=== PATIENT | male | born 1995 | race Caucasian/White ===

== ENCOUNTER 2018-06-08 18:02 | Emergency (ER) | payer BC ==
[~2018-06-08] VITALS: Ht 190.5 cm; Wt 90.7 kg
--- OUTSIDE RECORDS SUMMARY | 2018-06-08 18:04 | XMS REPORT | Encounter Summary ---
Author Organization Unknown Address [address] [place] [address] Phone [phone] Reason for Visit Medical Complaint Instructions 1. Viral gastroenteritis rapid flu (A+B) gastroenteritis: care instructions nausea and vomiting: care instructions diarrhea: care instructions oral rehydration: care instructions 2. Influenza vaccine needed Discussion Note: None recorded. Plan of Care Patient Instructions Your Care Instructions Gastroenteritis is an illness that may cause nausea, vomiting, and diarrhea. It is sometimes called "stomach flu." It can be caused by bacteria or a virus. You will probably begin to feel better in 1 to 2 days. In the meantime, get plenty of rest and make sure you do not become dehydrated. Dehydration occurs when your body loses too much fluid. Follow-up care is a roman part of your treatment and safety. Be sure to make and go to all appointments, and call your doctor if you are having problems. It's also a good idea to know your test results and keep a list of the medicines you take. How can you care for yourself at home? If your doctor prescribed antibiotics, take them as directed. Do not stop taking them just because you feel better. You need to take the full course of antibiotics. Drink plenty of fluids to prevent dehydration, enough so that your urine is light yellow or clear like water. Choose water and other caffeine-free clear liquids until you feel better. If you have kidney, heart, or liver disease and have to limit fluids, talk with your doctor before you increase your fluid intake. Drink fluids slowly, in frequent, small amounts, because drinking too much too fast can cause vomiting. Begin eating mild foods, such as dry toast, yogurt, applesauce, bananas, and rice. Avoid spicy, hot, or high-fat foods, and do not drink alcohol or caffeine for a day or two. Do not drink milk or eat ice cream until you are feeling better. How to prevent gastroenteritis Keep hot foods hot and cold foods cold. Do not eat meats, dressings, salads, or other foods that have been kept at room temperature for more than 2 hours. Use a thermometer to check your refrigerator. It should be between 34F and 40F. Defrost meats in the refrigerator or microwave, not on the kitchen counter. Keep your hands and your kitchen clean. Wash your hands, cutting boards, and countertops with hot soapy water frequently. Cook meat until it is well done. Do not eat raw eggs or uncooked sauces made with raw eggs. Do not take chances. If food looks or tastes spoiled, throw it out. When should you call for help? Call 911 anytime you think you may need emergency care. For example, call if: You vomit blood or what looks like coffee grounds. You passed out (lost consciousness). You pass maroon or very bloody stools. Call your doctor now or seek immediate medical care if: You have severe belly pain. You have signs of needing more fluids. You have sunken eyes, a dry mouth, and pass only a little dark urine. You feel like you are going to faint. You have increased belly pain that does not go away in 1 to 2 days. You have new or increased nausea, or you are vomiting. You have a new or higher fever. Your stools are black and tarlike or have streaks of blood. Watch closely for changes in your health, and be sure to contact your doctor if: You are dizzy or lightheaded. You urinate less than usual, or your urine is dark yellow or brown. You do not feel better with each day that goes by. Reminders Provider Appointments None recorded. Lab Rapid Flu (A+B) 04/17/2018 [facility] Referral None recorded. Procedures None recorded. Surgeries None recorded. Imaging None recorded. Medications Name Start Date sertraline 100 mg tablet Medications Administered None recorded. Vitals Height Weight BMI Blood Pressure 6 ft 3 in 195 lbs 24.4 kg/m2 110/66 mm[Hg] Lab Results Date Name Specimen Result Interpretation Description Value Range Status Address Rapid Flu (A+B) Influenza a negative [facility]: [address] [place] [address] Influenza B negative [facility]: [address] [place] [address] Allergies Code Code System Name Reaction Severity Status Onset NKDA Problems No Known Problems Procedures None recorded. Vaccine List None recorded. Social History Smoking Status Never Smoker Past Encounters 04/17/2018 Viral Gastroenteritis; Influenza Vaccine Needed Shireen Bermeo, TOBACCO CONDITIONER-C: [address] [facility], [place] [address], Ph. History of Present Illness Lisssi-Plozvjew-Pupslynn / Abdominal Pain Reported By: Patient HPI: Quality: watery, soft. Severity: moderate. Duration: present for < 1 week. Onset/Timing: no nocturnal symptoms. Context: no one else with similar symptoms, no recent camping, no recent picnic, no possible food sources, no recent travel. Associated Symptoms: no abdominal pain, no excess gas, no fever/chills, no rash, no joint pain, no weight loss, no nausea, no vomiting, no heartburn, no blood in stool, no mucus in stool, no black or tarry stools, no weakness, no nutrient deficiency, no feeling of fullness/mass in throat, no muscle aches, no bitter taste in the mouth, no difficulty swallowing (d ysphagia), headache Review of Systems:ROS as noted in the HPI Review of Systems Basic Reported By: Patient Physical Exam Adult Basic, Adult Male Complete Reported By: Patient Constitutional: General Appearance: healthy-appearing, well-nourished, well-developed. Level of Distress: NAD. Ambulation: ambulating normally Psychiatric: Mental Status: active and alert. Orientation: to time, to place, to person Gai-Bama-Hvyvw-Throat: Ears: no lesions on external ear, no outer ear tenderness, EACs clear, TMs clear. Hearing: no hearing loss. Nose: no lesions on external nose, nares patent, no septal deviation, nasal passages clear, no sinus tenderness, no nasal discharge. Lips, Teeth, and Gums: no mouth or lip ulcers, no bleeding gums, normal dentition. Oropharynx: moist mucous membranes, no erythema, no exudates, tonsils not enlarged Lungs: Respiratory effort: no dyspnea, no tachypnea, no use of accessory muscles, no intercostal retractions. Auscultation: breath sounds normal, good air movement Cardiovascular: Heart Auscultation: RRR, no murmurs Abdomen: Bowel Sounds: normal. Inspection and Palpation: soft, no tenderness, no guarding, no rebound tenderness, no masses, no CVA tenderness
--- OUTSIDE RECORDS SUMMARY | 2018-06-08 18:04 | XMS REPORT | Encounter Summary ---
Author Organization Unknown Address [address] [place] [address] Phone [phone] Reason for Visit Medical Complaint Instructions 1. Acute bronchitis bronchitis: care instructions peak flow prednisone 20 mg tablet Bromfed DM 2 mg-30 mg-10 mg/5 mL oral syrup oral corticosteroids: care instructions 2. Posterior rhinorrhea fluticasone propionate 50 mcg/actuation nasal spray,suspension Discussion Note Pt in NAD, understands all information provided Plan of Care Patient Instructions Pt will take meds as prescribed with 8oz glass of water and food. Please seek care (PCP, Urgent Care, ER) or return to [facility] if symptoms get worse or do not resolve in 1 week. Reminders Provider Appointments None recorded. Lab None recorded. Referral None recorded. Procedures None recorded. Surgeries None recorded. Imaging None recorded. Medications Name Start Date Bromfed DM 2 mg-30 mg-10 mg/5 mL oral syrup Take 10 mL every 4 hours by oral route as needed. fluticasone propionate 50 mcg/actuation nasal spray,suspension [place] 1 spray twice a day by intranasal route for 14 days. prednisone 20 mg tablet Take 1 tablet twice a day by oral route after meals for 5 days. sertraline 100 mg tablet Medications Administered None recorded. Vitals Height Weight Blood Pressure 6 ft 3 in 110/70 mm[Hg] Lab Results Date Name Specimen Result Interpretation Description Value Range Status Address 06/04/2018 Peak Flow Pef 500 [facility]: [address] [place] [address] Percent Predicted Value 81 [facility]: [address] [place] [address] Allergies Code Code System Name Reaction Severity Status Onset NKDA Problems No Known Problems Procedures None recorded. Vaccine List None recorded. Social History Smoking Status Never Smoker Past Encounters 06/04/2018 Acute Bronchitis; Posterior Rhinorrhea Leonid Goss NP-C: [address] [place] [address], Ph. History of Present Illness Cough Reported By: Patient HPI: Location: chest. Quality: congested, wheezy cough. Duration: 1 days. Severity: moderate. Context: no sick contacts, no foreign travel, non-smoker, allergies, asthma, exposure to passive smoke, fume exposure. Associated Symptoms: no sputum production, no sweats, no significant weight gain, no significant weight loss, no morning cough, no sore throat, no vomiting, no diarrhea, no rash, no nausea, no fever/chills, no muscle aches, no headache, chest pain, shortness of breath, wheezing, difficulty breathing at night Review of Systems:ROS as noted in the HPI Review of Systems Basic Reported By: Patient Physical Exam Adult Basic, Adult Male Complete Reported By: Patient Constitutional: General Appearance: healthy-appearing, well-nourished, well-developed. Level of Distress: NAD. Ambulation: ambulating normally Psychiatric: Mental Status: active and alert. Orientation: to time, to place, to person Lungs: Respiratory effort: no dyspnea, no tachypnea, no use of accessory muscles, no intercostal retractions. Auscultation: breath sounds normal, good air movement Cardiovascular: Heart Auscultation: no murmurs Neurologic: Gait and Station: normal gait, normal station
--- OUTSIDE RECORDS SUMMARY | 2018-06-08 18:04 | XMS REPORT | Continuity of Care Document ---
Author Author [facility] Interface Address Unknown Phone Unavailable Problems Problem Status Onset Date Classification Date Reported Comments Source Posterior rhinorrhea 06/04/2018 Diagnosis 06/04/2018 [facility] Acute bronchitis 06/04/2018 Diagnosis 06/04/2018 [facility] Influenza vaccine needed 04/17/2018 Diagnosis 04/17/2018 [facility] Viral gastroenteritis 04/17/2018 Diagnosis 04/17/2018 [facility] Medications Medication Details Route Status Patient Instructions Ordering Provider Order Date Source Sertraline 100 MG Oral Tablet sertraline 100 mg tablet Active [facility] Brompheniramine Maleate 0.4 MG/ML / Dextromethorphan Hydrobromide 2 MG/ML / Pseudoephedrine Hydrochloride 6 MG/ML Oral Solution [Bromfed DM] Bromfed DM 2 mg-30 mg-10 mg/5 mL oral syrup Take 10 mL every 4 hours by oral route as needed. Active [facility] Fluticasone propionate 0.05 MG/ACTUAT Metered Dose Nasal [place] fluticasone propionate 50 mcg/actuation nasal spray,suspension [place] 1 spray twice a day by intranasal route for 14 days. Active [facility] Prednisone 20 MG Oral Tablet prednisone 20 mg tablet Take 1 tablet twice a day by oral route after meals for 5 days. Active [facility] Allergies, Adverse Reactions, Alerts Substance Category Reaction Severity Reaction type Status Date Reported Comments Source Immunizations Immunization Date Given Site Status Last Updated Comments Source Results Order Name Results Value Reference Range Date Interpretation Comments Source PEF 500 06/04/2018 [facility] Percent Predicted Value 81 06/04/2018 [facility] Influenza A negative 04/17/2018 [facility] Influenza B negative 04/17/2018 [facility] Vital Signs Vital Sign Value Date Comments Source Diastolic (mm Hg) 70 06/04/2018 [facility] Height 75 06/04/2018 [facility] Systolic (mm Hg) 110 06/04/2018 [facility] Diastolic (mm Hg) 66 04/17/2018 [facility] Height 75 04/17/2018 [facility] Systolic (mm Hg) 110 04/17/2018 [facility] Weight 195 04/17/2018 [facility] Encounters Location Location Details Encounter Type Encounter Number Reason For Visit Attending Provider ADM Date DC Date Status Source [place] - [facility] - [id number] CornejoP-C: [address] [place] [address], Ph. [id number] Shireen Bermeo 04/17/2018 [facility] [place] - [facility] - [id number] Leonid Goss, COUNTER WEIGHER-C: [address] [place] [address], Ph. [id number] Leonid Goss 06/04/2018 [facility] Procedures Procedure Code Date Perfomer Comments Source
[2018-06-08] MEDS ORDERED: ALBUTEROL SULF 0.083% NEB SOLN 3 ML NEB NEB STA (18:10)
[2018-06-08] MEDS ORDERED: IPRATROPIUM BROMIDE 0.02% 2.5 ML NEB NEB STA (18:10)
[2018-06-08] MEDS ORDERED: DEXAMETHASONE SOD PHOS 10 MG/1 ML VIAL IM ONE (18:30)
--- NOTE | 2018-06-08 18:39 | Diagnostic Imaging Report ---
EXAMINATION: PA and lateral views of the chest. COMPARISON: None CLINICAL HISTORY: Wheezing and coughing DISCUSSION: Lines/tubes: None. Lungs: The lungs are well inflated and clear. No pneumonia or pulmonary edema. Pleura: No pleural effusion or pneumothorax. Heart and mediastinum: The cardiomediastinal silhouette is normal. Bones and soft tissues: No acute bony abnormalities. IMPRESSION: No acute cardiopulmonary abnormalities. Signed by: Dr. Bonifacio Zambrano M.D. on 06/08/2018 6:35 PM
[2018-06-08 18:55] VITALS: BP 126/70
== END 2018-06-08 19:33 | disposition home or self-care (01) ==
LOC: ER 18:02
DX: R05 Cough (principal); J20.9 Acute bronchitis, unspecified
CPT/HCPCS: 71046; 99283; J1100